=== PATIENT | male | born 1980 | race Caucasian/White ===

== ENCOUNTER 2017-03-16 12:24 | Emergency (ER) | payer OTHER ==
[~2017-03-16 12:24] MED LIST: ACETAMINOPHEN/H1 TA6 PO; CIPRO500 MG PO; CLINDAMYCIN HC300 MG PO; KEFLEX500 MG PO; KENC TOP; LAC PO; NOR10T PO; NORCO1 TA1 PO; Testosterone
[2017-03-16 16:42] VITALS: BP 141/89
== END 2017-03-16 16:42 | disposition home or self-care (01) ==
LOC: ED 12:24
DX: M79.662 Pain in left lower leg (principal); M79.661 Pain in right lower leg; F17.210 Nicotine dependence, cigarettes, uncomplicated
CPT/HCPCS: J2270; J2405; Q0092